=== PATIENT | female | born 1935 | race Hispanic/Latino ===

== ENCOUNTER 2019-11-13 06:54 | Day surgery (SDC) | payer MEDICARE ==
[2019-11-12 11:08] LABS: BASOPHILS % (AUTO) 0.4 % (0.0-5.0); EOSINOPHILS % (AUTO) 3.2 % (0.0-8.0); HEMATOCRIT 37.3 % (36-48); LYMPHOCYTES % (AUTO) 26.6 % (21.0-51.0); MEAN CORPUSCULAR HEMOGLOBIN 30.3 pg (27.0-33.0); MEAN CORPUSCULAR HGB CONC 32.4 g/dL (32.0-36.0); MEAN CORPUSCULAR VOLUME 93.5 fL (79-99); MONOCYTES % (AUTO) 8.1 % (3.0-13.0); NEUTROPHILS % (AUTO) 61.4 % (40.0-77.0); PLATELET COUNT (AUTO) 288 K/uL (130-400); RED BLOOD CELL COUNT(AUTO) 3.99 MIL/uL (4.00-5.50); RED CELL DISTRIBUTION WIDTH 13.3 % (11.0-15.5)
[2019-11-12 11:10] LABS: CREATININE 0.8 mg/dL (0.5-1.5); POTASSIUM 3.8 mmol/L (3.5-5.1)
[2019-11-12 12:07] VITALS: BP 149/73
[2019-11-13] VITALS (17 sets, daily range): BP systolic 112–149; BP diastolic 51–72
[~2019-11-13] VITALS: Ht 165.1 cm; Wt 80.5 kg
[~2019-11-13 06:54] MED LIST: ACET-2743 PO; AMLO10TA7 PO; ASPI-555 PO; BENA40TA9 PO; METO-391 PO
[2019-11-13] MEDS ORDERED: BUPIVACAINE/PF 0.25% 30ML VIAL IJ ONE (07:23)
[2019-11-13] MEDS ORDERED: CEFAZOLIN SODIUM 1 GM VIAL IVP ONE (08:00)
[2019-11-13] MEDS ORDERED: SODIUM CHLORIDE 0.9% 1000ML 1,000 ML IV SCH (08:00)
[2019-11-13] MEDS ORDERED: PROPOFOL 10 MG/ML 20ML VIAL IV ONE (08:11)
[2019-11-13] MEDS ORDERED: LIDOCAINE PF 2% 5ML ABBOJECT ONE (08:11)
[2019-11-13] MEDS ORDERED: DEXAMETHASONE SOD PHOSPHATE 10MG/ML 1ML VIAL ONE (08:12)
[2019-11-13] MEDS ORDERED: FENTANYL CITRATE PF 50 MCG/1 ML 2ML VIAL ONE (08:12)
[2019-11-13] MEDS ORDERED: ONDANSETRON HCL 4 MG/2 ML VIAL ONE (08:13)
[2019-11-13] MEDS ORDERED: KETOROLAC TROMETHAMINE 30MG/ML ONE (09:02)
[2019-11-13] MEDS ORDERED: EPHEDRINE SULFATE 50 MG/ML AMPULE ONE (09:03)
--- NOTE | 2019-11-13 11:10 | NUR ---
POST RECEIVED PT FROM PACU, S/P RIGHT UPPER CHEST PORTACATH PLACEMENT, DRESSING TO SITE DRY AND INTACT, VS STABLE ON ARRIVAL. LEFT BREAST NOTED WITH NECROTIC AREA. OPEN TO AIR. CALL LIGHT WITHIN REACH.
--- NOTE | 2019-11-13 11:40 | NUR ---
DC DC INSTRUCTIONS GIVEN TO PT DAUGHTER WITH RX, INTRUCTED TO F/U WITH DR. YUSUF, PORT CATH BOOKLET PROVIDED TO PATIENT WITH MANNY. SHE VERBALIZED UNDERSTANDING
--- NOTE | 2019-11-13 11:55 | NUR ---
DC PT DC HOME VIA WC, NO DITRESS NOTED. ACCOMPANIED BY DAUGHTER
== END 2019-11-13 11:55 | disposition home or self-care (01) ==
LOC: DAH 06:54
PROVIDERS: ATTEND Student in an Organized Health Care Education/Training Program
DX: C50.912 Malignant neoplasm of unspecified site of left female breast (principal); I10 Essential (primary) hypertension; E11.9 Type 2 diabetes mellitus without complications; I25.10 Atherosclerotic heart disease of native coronary artery without angina pectoris; Z95.5 Presence of coronary angioplasty implant and graft; Z79.82 Long term (current) use of aspirin; Z79.899 Other long term (current) drug therapy; Z83.3 Family history of diabetes mellitus; Z98.890 Other specified postprocedural states
CPT/HCPCS: 36415; 36561; 71045; 77001; 80048; 82948 ×2; 85025; 93005; A4215; A4221; A4222; A4223; A4606; A4649; A4663; A4930 ×2; A6207; A6260; C1788; J0690; J1100; J1644; J1885; J2001; J2405; J2704; J3010; J3490 ×2; J7030; 77002